=== PATIENT | male | born 1990 | race Caucasian/White ===

== ENCOUNTER 2019-03-04 17:22 | Emergency (ER) | payer OTHER ==
[2019-03-04] MEDS: HYDROCODONE/APAP (5/325) TAB PO (18:59)
[2019-03-04] MEDS: KETOROLAC 30 MG INJ IM (19:00)
== END 2019-03-04 20:33 | disposition home or self-care (01) ==
LOC: FTE 17:22
DX: S13.4XXA Sprain of ligaments of cervical spine, initial encounter (principal); J45.909 Unspecified asthma, uncomplicated; F17.210 Nicotine dependence, cigarettes, uncomplicated; V49.49XA Driver injured in collision with other motor vehicles in traffic accident, initial encounter
CPT/HCPCS: 72125; 72128; 72131; 96372; 99285-25